=== PATIENT | female | born 1975 | race Caucasian/White ===

== ENCOUNTER 2019-12-16 14:38 | Outpatient (RCR) | payer OTHER, SELFPAY ==
--- NOTE | 2019-12-16 16:45 | OTOPEVAL ---
OCCUPATIONAL THERAPY EVALUATION REPORT & DISCHARGE 12/16/2019 Thank you for referring Dorothea Roche to [facility]. 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 Inflammation of this tendon causes increased pressure in the carpal tunnel increasing the nerve pain shooting into the fingers and proximally in the forearm. Today she was unable to tolerate any conservative measures, such as application of a splint to rest these structures. When attempting pulsed ultrasound, for its inflammation reducing properties, she was unable to tolerate the pressure of the sound head over the palmar surface of her hand/wrist. Any manual treatment to increase her flexibility caused so much pain that she was unable to keep her arm on the table. Clinically it appears that the nerve intrapment and local swelling of the FPL tendon is causing such extreme pain that she is unable to tolerate conservative measure treatment. Strongly recommend that she wear an orthotic to immobilize the thumb and wrist to rest these structures described above. Plan to discharge from skilled OT and have the patient follow up with MD. Please review, sign, date and return this D/C Report NURYS. I agree with and certify that the following plan of care is medically necessary. Referring Physician Date Referring Provider: Dakota Bradshaw MD *OT Outpatient Evaluation Therapy Assessment Status Assessment Status Assessment Status Evaluation Evaluation Information Problem Diagnosis (L) volar wrist pain Additional Evaluation Detail Patient reports onset of wrist and hand pain January 2019. She has not worked in her repetitive job since Feb 2019 and has not been working at all for about 10 weeks due to COVID-19. Subjective Information Dorothea reports constant pain. Query Text:As Reported By Patient/ The pain changes from Family throbbing and aching to sharp and shooting. She notes pain specifically in the left hand and wrist localized to the carpal tunnel, thenar eminance , and volar MCP joint. She tried night splinting in the past, but reports being unable to tolerate any sort of pressure over the volar thumb and wrist area. She reports no relief from pain with ice, heat, or medication. She reports being unable to sleep, unable to professor of art objects - especially a cylindrical grasp, and unable to pinch. She reports having to rely on her childr
== END 2019-12-17 08:47 | disposition home or self-care (01) ==
LOC: ANHOT 14:38
PROVIDERS: Visit Provider Plastic Surgery
DX: M25.532 Pain in left wrist (principal)
CPT/HCPCS: 97165

== ENCOUNTER 2020-02-01 00:45 | Outpatient (CLI) | payer OTHER, SELFPAY ==
[2020-02-01 20:03] LABS: SARS-CoV-2 RNA PCR Negative
== END 2020-02-01 00:46 | disposition home or self-care (01) ==
LOC: ANHCOVIDDT 00:46
PROVIDERS: Visit Provider Plastic Surgery
DX: Z01.818 Encounter for other preprocedural examination (principal); Z11.59 Encounter for screening for other viral diseases
CPT/HCPCS: 87635; C9803; U0003

== ENCOUNTER 2020-02-03 01:49 | Day surgery (SDC) | payer OTHER, SELFPAY ==
[2020-01-25 10:02] VITALS: BMI 31.2
--- NOTE | 2020-02-03 06:36 | HP_ITS ---
DATE OF SERVICE: PREOPERATIVE DIAGNOSIS: Left carpal tunnel syndrome. HISTORY: The patient has had a long course getting here today. She was 1st seen in February 2019, and a clinical diagnosis of bilateral carpal tunnel syndrome was made. She underwent injection of the left wrist at that time. Her symptoms included all of the complaints of carpal tunnel syndrome including tips of the index and thumb being numb most of the time, often spreading into the 3rd finger. She has burning around the dorsal base of the 1st web space that is very bothersome to her. She has tightness around her wrist. Significant swelling in the thenar area. She drops things. 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 She says she has cramping, her hand writing hurts and fatigues quickly. She has been seen now a number of times since her 1st visit and all her complaints have remained the same and she is frustrated that she has had a hard time convincing someone that she needs surgery on the left after having had successful surgery on the right in March 2019. She had an independent medical examination at one point and she has had additional nerve conduction tests done and we are pressing ahead with surgery on her left carpal tunnel through a different [employer]. She has had a negative MRI and she has had negative nerve conduction tests with the exception of a finding by Dr. 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 He goes on to comment that the findings are so minimal that they do not correlate with the severity of her symptoms. ALLERGIES: SHE HAS NO KNOWN ALLERGIES TO MEDICATIONS. MEDICATIONS: Current medicines are Prilosec, ibuprofen, and Tylenol. PRIOR SURGERIES: Include a on 3 occasions, she had a tubal ligation in 2006. She had an ablation in 2009, and cholecystectomy in 2016. REVIEW OF SYSTEMS: Indicates she is a smoker. She has a history of stomach ulcer and gastric reflux that has prevented her from utilizing significant amounts of NSAIDs. FAMILY HISTORY: Noncontributory. SOCIAL HISTORY: She lives in [place]. 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 PHYSICAL EXAMINATION: GENERAL: Reveals an alert, cooperative, agreeable, sometimes depressed lady with standing 5 feet tall, weighing 170 pounds. She is most of the time in no acute distress. HEENT EXAM: Unremarkable. CHEST: Clear to auscultation. HEART: Regular rate and rhythm by palpation. ABDOMEN: Soft, nontender. EXTREMITY EXAM: Has revealed on several occasions numerous positives on the left. She has thenar tenderness, trouble flexing her thumb. Tinel's at the wrist and provocative pain in the forearm. She has had it field technician testing demonstrating inability to generate any significant power on the left, similar with lucero pinch. ASSESSMENT: Left carpal tunnel syndrome. PLAN: Left open carpal tunnel release. The patient prefers MAC anesthetic. D I MT: Dameon TOTH
[2020-02-03] MEDS: LACTATED RINGERS 1,000 ML 30 ML IV CONT (07:00)
--- NOTE | 2020-02-03 07:15 | WPDHPUPDATE1 ---
History and Physical Update Update Date/Time: 02/03/20 07:15 History and Physical has been reviewed, including an updated exam of the patient. There are NO changes in the patient's condition. Risks, benefits, and alternatives have been discussed and questions answered. Patient agrees to proceed with procedure.
[2020-02-03 07:30] VITALS: BP 139/94; PULSE 70; RESP 18; TEMP 37.7; O2SAT 99
--- NOTE | 2020-02-03 07:57 | WPDANESEPPF ---
Anes - Initial Pre Proc Eval Procedure: Operation Date: 02/03/20 08:30 Proposed Procedures p Left Open Carpal Tunnel Release - Dakota Bradshaw MD Date/Time: 02/03/20 07:57 Surgeon: Dakota Bradshaw MD Pre Op Diagnosis: left carpal tunnel syndrome Patient Data Age: 44 Gender: F Height: 5 ft Weight: 72.57 kg Allergies Allergy/AdvReac Type Severity Reaction Status Date / Time No Known Allergies Allergy Unverified 01/25/20 10:05 Home Medications Medication Instructions Recorded Confirmed Type ibuprofen 800 mg PO BID PRN 01/25/20 01/25/20 History lansoprazole [Prevacid] 15 mg PO DAILY PRN 01/25/20 01/25/20 History omeprazole 20 mg PO DAILY PRN 01/25/20 01/25/20 History Patient hx anesthesia problems: none Family hx anesthesia problems: none [facility] Past Medical History Medical History GERD (gastroesophageal reflux disease) Hx of migraines Tobacco abuse Anes - Eval Final PreProcedure Day of Procedure 02/03/20 07:57 Patient weight: obese Heart: regular rate and rhythm Lungs: decreased breath sounds Airway: Mallampati scale class II Neurological: alert and oriented Last oral intake: >/= 8 hours ASA classification: III Emergent: no Anesthetic plan: proceed Anesthesia type and monitoring: general GIVS and standard monitoring Informed Consent: The patient's anesthetic plan and its attendant risks and benefits were discussed with the patient/family/POA. Questions were solicited and answers provided to the satisfaction of the patient/family/POA.
[2020-02-03] MEDS: LIDO 1%/EPINEPHRINE 1:100,000 20 ML VIAL 7 ML INFILTRATE (08:11)
--- NOTE | 2020-02-03 08:19 | PM.OP ---
Procedure Note - Brief Procedure Note - Brief Date of procedure: 02/03/20 Pre-op diagnosis: left carpal tunnel syndrome Post-op diagnosis: same Procedure performed: L OCTR Anesthesia: MAC Surgeon: Dakota Bradshaw MD Estimated blood loss (mL): 1 Tourniquet time (min): 0 Drains: No Packing: No Pathology: none sent Complications: No immediate complications Condition: stable Disposition: same day
[2020-02-03 08:37] VITALS: BP 112/71; PULSE 77; RESP 18; O2SAT 97
--- NOTE | 2020-02-03 08:45 | PM.PROC ---
Procedure Note - Detailed Date of procedure: 02/03/20 Pre-op diagnosis: left carpal tunnel syndrome Post-op diagnosis: same Procedure performed: Left open carpal tunnel release Description of procedure: The left wrist was marked with the patient in the holding area. She was taken to the operating room and placed supine on the operating table. A time-out was held and confirmed. The left extremity was prepped and draped in usual fashion and she was given IV sedation. The operative site was remarked and then locally infiltrated with 1% lidocaine with epinephrine. No tourniquet was used. The incision was made as marked and carried bluntly through the subcutaneous tissue to the palmar fascia. This and the carpal ligament were incised with a 15. Blade opening the canal. Under 3 point retraction the ligament was divided distally and proximally to completely release it. No unusual anatomy was noted. The wound was closed with interrupted 5 0 nylon suture. The patient is discharged from the operating room in stable condition turned. She is discharged with instructions in wound care and follow-up. She has a prescription for hydrocodone 5 10. Surgeon: Dakota Bradshaw MD
[2020-02-03 09:05] VITALS: BP 112/71; PULSE 77; RESP 14; O2SAT 97
== END 2020-02-03 09:35 | disposition home or self-care (01) ==
PROVIDERS: PCP Emergency Medicine; Visit Provider Plastic Surgery
PROC: (CPT 64721; principal; 2020-02-03 08:30)
DX: G56.02 Carpal tunnel syndrome, left upper limb (principal); K21.9 Gastro-esophageal reflux disease without esophagitis; E66.9 Obesity, unspecified; Z68.34 Body mass index [BMI] 34.0-34.9, adult
CPT/HCPCS: 64721; A9270; J2250; J2704; J3010; J7120